=== PATIENT | female | born 1985 | race African-American/Black ===

== ENCOUNTER 2016-12-28 19:52 | Emergency (ER) | payer OTHER ==
--- NOTE | ~2016-12-28 | CR63 ---
[facility]. [facility] A Service of [facility] RADIOLOGY TEXT RESULTS PATIENT: CORKY LANDEROS LOCATION: SED : 83 UNIT #: [id number] AGE: [address]: Alexys Martinez SEX: F ORDER DR: [id number] [address] [address] [id number] E MR#: [id number] Acc #: [id number] NAME: CORKY LANDEROS : 1985 SEX: F STUDY DATE/TIME: 12/28/2016 20:19 UNIT: SED ROOM: STUDY DESCRIPTION: CR Chest 2 View Attending Physician: Alexys Martinez P.A.-C. Ordering Physician: Alexys Martinez P.A.-C. Primary Care Physician: No Primary Care Physician MEDICAL IMAGING REPORT This report is preliminary unless electronic signature is present. EXAM Two-view chest. HISTORY Shortness of air, hyperventilation, and numbness arms and legs, onset 1730 hours. FINDINGS PA and lateral examination of the chest upright shows a good expansion of the parenchyma with a normal distribution of the pulmonary vascularity. There is no indication of congestion, effusion, infiltrate, tumor, or nodular density. The pleural reflections and diaphragmatic contours are normal. The cardiac silhouette and mediastinal anatomy is within normal limits. IMPRESSION Normal chest. Dictated by... Nicole Ariza M.D. THIS IS AN ELECTRONICALLY VERIFIED REPORT Nicole Ariza M.D. at 12/29/2016 2:09 PM Nina TD: 12/29/2016 10:42 JOB #: [id number] MEDICAL IMAGING REPORT
[~2016-12-28 19:52] MED LIST: ALBUTEROL 0.5ML INH; ALBUTEROL17 GM INH; AMOXICILLIN PO; CIPRO PO; IBUPROFEN PO; IRON1 TAB; KEFLEX500 M1 PO; MULTI VITAMIN1 EACH PO; NABUMETONE PO; NO MEDICATIONS; PHENERGAN PO; SKELAXIN PO; TYLENOL #3 PO; ULTRAM PO; VICODIN PO
== END 2016-12-28 21:04 | disposition home or self-care (01) ==
LOC: SED 19:52
DX: F41.0 Panic disorder [episodic paroxysmal anxiety] (principal); F17.210 Nicotine dependence, cigarettes, uncomplicated
CPT/HCPCS: 71020; 99283

== ENCOUNTER 2017-01-23 22:10 | Emergency (ER) | payer OTHER ==
--- NOTE | ~2017-01-23 | CR2 ---
[facility] A Service of [facility] RADIOLOGY TEXT RESULTS PATIENT: CORKY LANDEROS LOCATION: SED : 84 UNIT #: [id number] AGE: [address]: LUCIANO LAGUERRE PA-C SEX: F ORDER DR: [id number] [address] [address] [id number] E MR#: [id number] Acc #: [id number] NAME: CORKY LANDEROS : 1985 SEX: F STUDY DATE/TIME: 01/23/2017 23:09 UNIT: SED ROOM: STUDY DESCRIPTION: CR Abdomen Acute Series Attending Physician: Luciano Laguerre Pa-C Ordering Physician: Luciano Laguerre Pa-C Primary Care Physician: Primary Care Physician No MEDICAL IMAGING REPORT This report is preliminary unless electronic signature is present. EXAM Acute abdomen series 01/23/2017 at 2309 hours INDICATION Nausea, vomiting, diarrhea, abdominal pain and cramping that started this morning. COMPARISON Chest x-ray 12/28/2016. FINDINGS Single frontal view of the chest taken at the time of the abdominal examination is within normal limits. AP, supine, and upright examination of the abdomen shows a normal gas and fecal pattern distribution throughout large and small bowel without distended loops in either area. There is no indication of extraluminal air, unusual visceromegaly, or soft tissue density mass. The renal definitions are fairly well demarcated and normal in shape and size. No abnormal intra-abdominal calcifications are present. IMPRESSION Normal acute abdomen series. Dictated by... Benoit Tay Jr., M.D. THIS IS AN ELECTRONICALLY VERIFIED REPORT Benoit Tay Jr., M.D. at 01/24/2017 11:14 AM HEIDE/fred [facility] A Service [facility] RADIOLOGY TEXT RESULTS PATIENT: CORKY LANDEROS LOCATION: SED : 84 UNIT #: [id number] AGE: [address]: LUCIANO LAGUERRE PA-C SEX: F ORDER DR: TD: 01/24/2017 07:18 JOB #: [id number] MEDICAL IMAGING REPORT Page 1 of 1
[2017-01-23 22:45] LABS: URINE SOURCE CLEAN CATCH
[2017-01-23 22:47] LABS: INFLUENZA A NEG (NEG); INFLUENZA B NEG (NEG)
[2017-01-23 22:51] LABS: URINE APPEARANCE CLEAR; URINE BILIRUBIN NEG (NEG); URINE BLOOD NEG (NEG); URINE COLOR YELLOW; URINE GLUCOSE NEG (NORM); URINE KETONE NEG (NEG); URINE LEUKOCYTE ESTERASE NEG (NEG); URINE NITRATE NEG (NEG); URINE PH 5.5 (5-8); URINE PROTEIN TRACE (NEG); URINE SPECIFIC GRAVITY >=1.030 (1.003-1.035); URINE UROBILINOGEN 0.2 MG/DL (NORM)
[2017-01-23 22:52] LABS: MICRO INDICATED? NO
[2017-01-23 23:04] LABS: BASOPHIL# 0.1 X10e3 (0-0.3); BASOPHIL% 0.9 % (0-2.5); EOSINOPHIL# 0.1 X10e3 (0-0.7); EOSINOPHIL% 1.3 % (0.0-7.0); HEMATOCRIT 42.5 % (35.0-45.0); HEMOGLOBIN 13.8 gm/dL (12.0-16.0); LYMPHOCYTE# 0.9 X10e3 (1.0-3.5); LYMPHOCYTE% 9.6 % (17.0-45.0); MEAN CELL VOLUME 82.9 FL (83-96); MEAN CORPUSCULAR HGB CONC 32.6 g/dL (30-36); MEAN PLATELET VOLUME 8.1 FL (6.5-11.5); MONOCYTE# 0.8 X10e3 (0-1.0); NEUTROPHIL# 7.1 X10e3 (1.5-7.1); NEUTROPHIL% 79.2 % (40-75); PLATELET COUNT 308 X10e3 (140-420); RED BLOOD COUNT 5.13 X10e (3.90-5.30); RED CELL DISTRIBUTION WIDTH 15.7 % (11.0-15.5)
[2017-01-23 23:06] LABS: DIFF IND NO
[2017-01-23 23:24] LABS: ALBUMIN SERUM 4.5 g/dL (3.5-5.0); BILIRUBIN, DIRECT 0.2 mg/dL (0.0-0.2); BILIRUBIN,INDIRECT 0.9 mg/dL (0.0-0.9); BILIRUBIN,TOTAL 1.1 mg/dL (0.2-2.0); BUN/CREATININE RATIO 14.28; CREATININE SERUM 0.7 mg/dL (0.6-1.4); GLOM FILT RATE Estimated 132.9 mL/min (>60); POTASSIUM 3.5 mmol/L (3.5-5.1); PROTEIN TOTAL SERUM 8.2 g/dL (6.0-8.3)
== END 2017-01-24 00:51 | disposition home or self-care (01) ==
LOC: SED 22:10
PROVIDERS: Physician Assistant
DX: R11.2 Nausea with vomiting, unspecified (principal); R19.7 Diarrhea, unspecified; R10.84 Generalized abdominal pain; J45.909 Unspecified asthma, uncomplicated; Z88.6 Allergy status to analgesic agent; Z88.5 Allergy status to narcotic agent; Z88.8 Allergy status to other drugs, medicaments and biological substances; Z79.899 Other long term (current) drug therapy; Z87.891 Personal history of nicotine dependence
CPT/HCPCS: 36415; 74022; 80048; 80076; 81003; 83690; 84703; 85025; 87651; 87804; 96361; 96374; 96375; 99284; J1885; J2405